=== PATIENT | male | born 1955 | race Two or more races ===

== ENCOUNTER 2016-06-09 10:05 | Emergency (ER) | payer OTHER ==
[~2016-06-09] VITALS: Ht 167.6 cm; Wt 81.6 kg
[2016-06-09 10:08] VITALS: BP 169/87
--- NOTE | 2016-06-09 10:22 | Emergency Room Report ---
History of Present Illness General Chief Complaint: Earache Source: Patient Present Illness HPI 61 YOM with 2 days right ear pain. Denies fever/chills, discharge from ear. Denies recent [place]. Denies history of DM, HTN. has known cirrhosis, former ETOH drinker. Denies decreased hearing, tinnitus, headache, neck pain/stiffness. Feels well otherwise. Allergies: Coded Allergies: ACETAMINOPHEN (Verified Allergy, Unknown, 06/09/16) NSAIDS (NON-STEROIDAL ANTI-INFLAMMA (Verified Allergy, Unknown, 06/09/16) Uncoded Allergies: NSAIDS (Allergy, Unknown, 06/09/16) Patient History Past Medical History: other - cirrhosis Past Surgical History: none Pertinent Family History: none Social History: Denies: alcohol use, drug use, smoking Immunizations: UTD Reviewed Nursing Documentation: PMH: Agreed, PSxH: Agreed Nursing Documentation-PMH Past Medical History: No History, Except For Review of Systems All Other Systems: negative except mentioned in HPI Physical Exam Vital Signs Date Time Temp Pulse Resp B/P Pulse Ox O2 Delivery O2 Flow Rate FiO2 06/09/16 10:08 98.2 90 14 169/87 99 Room Air Sp02 EP Interpretation: reviewed, normal General Appearance: normal inspection, well appearing, no apparent distress, alert Head: atraumatic ENT: normal ENT inspection, hearing grossly normal, normal pharynx, no angioedema, normal voice, uvula midline, moist mucus membranes, other - Right TM : inner canal is swollen with some pus discharge. Unable to see TM. No ttp to pinna or earlobe or outer ear. 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 VSS. Afebrile. Rx ofloxacin topical PMD followup as needed Return to ER for worsening pain, fever/chills Last Vital Signs Date Time Temp Pulse Resp B/P Pulse Ox O2 Delivery O2 Flow Rate FiO2 06/09/16 10:08 98.2 90 14 169/87 99 Room Air Status: improved Disposition: HOME, SELF-CARE JOSSUE EMERSON M.D. Jun 09, 2016 10:22
[2016-06-09] MEDS ORDERED: OFLOXACIN5 ML OT (10:24)
[2016-06-09 10:40] VITALS: BP 169/87
== END 2016-06-09 10:40 | disposition home or self-care (01) ==
LOC: EMR 10:19
DX: H92.01 Otalgia, right ear (principal); Z88.6 Allergy status to analgesic agent
CPT/HCPCS: 99282

== ENCOUNTER 2017-09-06 15:26 | Emergency (ER) | payer SELFPAY ==
[~2017-09-06] VITALS: Ht 162.6 cm; Wt 84.8 kg
[~2017-09-06 15:26] MED LIST: OFLOXACIN5 ML OT
[2017-09-06] MEDS ORDERED: Ketorolac 30mg Inj IV ONE (16:00)
[2017-09-06 16:01] VITALS: BP 132/76
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
[2017-09-06 16:37] LABS: BASOPHILS % (AUTO) 1.3 % (0.0-2.0); EOSINOPHILS % (AUTO) 2.1 % (0.0-3.0); HEMATOCRIT 44.9 % (42.0-52.0); HEMOGLOBIN 15.4 G/DL (14.2-18.0); LYMPHOCYTES % (AUTO) 22.7 % (20.0-45.0); MEAN CORPUSCULAR VOLUME 87 FL (80-99); MONOCYTES % (AUTO) 6.9 % (1.0-10.0); NEUTROPHILS % (AUTO) 67.1 % (45.0-75.0); PLATELET COUNT 143 K/UL (150-450); RED BLOOD COUNT 5.14 M/UL (4.70-6.10); RED CELL DISTRIBUTION WIDTH 11.8 % (11.6-14.8); WHITE BLOOD COUNT 5.1 K/UL (4.8-10.8)
[2017-09-06 16:38] LABS: APPEARANCE,URINE CLEAR; BILIRUBIN, URINE NEGATIVE (NEGATIVE); GLUCOSE, URINE (UA) NEGATIVE (NEGATIVE); KETONES,URINE 1+ (NEGATIVE); LEUKOCYTE ESTERASE ,URINE 1+ (NEGATIVE); NITRITE,URINE NEGATIVE (NEGATIVE); PH,URINE 6 (4.5-8.0); PROTEIN,URINE 1+ (NEGATIVE); UROBILINOGEN,URINE 4 MG/DL (0.0-1.0)
[2017-09-06 16:41] LABS: COLOR,URINE AMBER
[2017-09-06 16:45] LABS: ANION GAP 8 mmol/L (5-15); BLOOD UREA NITROGEN 17 mg/dL (7-18); CALCIUM 8.7 MG/DL (8.5-10.1); CARBON DIOXIDE 27 MMOL/L (21-32); CHLORIDE 103 MMOL/L (98-107); CREATININE 0.8 MG/DL (0.55-1.30); POTASSIUM 3.9 MMOL/L (3.5-5.1); SODIUM 138 MMOL/L (136-145)
[2017-09-06 16:55] LABS: ALANINE AMINOTRANSFERASE 26 U/L (12-78); ALBUMIN 4.3 G/DL (3.4-5.0); ALBUMIN/GLOBULIN RATIO 1.2 (1.0-2.7); ALKALINE PHOSPHATASE 109 U/L (46-116); ASPARTATE AMINO TRANSFERASE 30 U/L (15-37); BILIRUBIN,TOTAL 1.6 MG/DL (0.2-1.0); CREATINE KINASE 353 U/L (26-308)
[2017-09-06 16:56] LABS: BILIRUBIN,DIRECT 0.3 MG/DL (0.0-0.3)
[2017-09-06 17:01] LABS: INR 1.1 (0.9-1.1)
[2017-09-06] MEDS ORDERED: traMADol 50mg tab ORAL ONE (17:15)
[2017-09-06 18:00] VITALS: BP 167/91
[2017-09-06] MEDS ORDERED: IBUPROFEN600 MG ORAL (18:05)
[2017-09-06] MEDS ORDERED: TRAMADOL HCL50 MG ORAL (18:05)
[2017-09-06] MEDS ORDERED: PEPCID AC20 M2 PO (18:05)
[2017-09-06 18:25] VITALS: BP 167/91
--- NOTE | 2017-09-07 09:43 | Diagnostic Imaging Report ---
Indication: Chest pain Comparison: None A single view chest radiograph was obtained. Findings: Cardiomediastinal appearance is within normal limits for age. Pulmonary vascularity is appropriate. The diaphragmatic contour is smooth and costophrenic angles are sharp. No pleural effusions are identified. The bones are unremarkable. Impression: No acute findings
--- NOTE | 2017-09-10 19:39 | Cardiology Report ---
APPROVED REPORT EKG Measurement Heart [id number] Normal sinus rhythm Normal ECG
== END 2017-09-06 18:25 | disposition home or self-care (01) ==
LOC: EMR 18:00
DX: M54.12 Radiculopathy, cervical region (principal); F10.10 Alcohol abuse, uncomplicated; Z88.6 Allergy status to analgesic agent; K74.60 Unspecified cirrhosis of liver
CPT/HCPCS: 36415; 71045; 72125; 80053; 81003; 82248; 82550; 84484; 85025; 85610; 85651; 85730; 93005; 96374; 96375; 99284; J1885; S0028